=== PATIENT | male | born 1985 | race Hispanic/Latino ===

== ENCOUNTER 2018-04-09 01:15 | Emergency (ER) | payer SELFPAY ==
[2018-04-09] MEDS ORDERED: Ibuprofen 800 MG TAB ONE (01:56)
[2018-04-09] MEDS ORDERED: Amoxicillin/Potassium Clav 875 MG TAB ONE (01:56)
== END 2018-04-09 02:19 | disposition home or self-care (01) ==
LOC: ERS 01:15
DX: H66.92 Otitis media, unspecified, left ear (principal); J30.9 Allergic rhinitis, unspecified; J06.9 Acute upper respiratory infection, unspecified
CPT/HCPCS: 99282

== ENCOUNTER 2018-04-10 21:38 | Emergency (ER) | payer SELFPAY | END 2018-04-10 22:07 | disposition home or self-care (01) | LOC: ERS 21:38 | DX: H66.92 Otitis media, unspecified, left ear (principal) | CPT/HCPCS: 99282 ==

== ENCOUNTER 2019-03-15 18:42 | Emergency (ER) | payer SELFPAY | END 2019-03-15 19:13 | disposition home or self-care (01) | LOC: ERS 18:42 | DX: J11.1 Influenza due to unidentified influenza virus with other respiratory manifestations (principal) | CPT/HCPCS: 99283 ==